=== PATIENT | male | born 1965 | race Caucasian/White ===

== ENCOUNTER 2018-04-19 08:55 | Emergency (ER) | payer OTHER, MEDICAID ==
[~2018-04-19] VITALS: Ht 167.6 cm; Wt 75.3 kg
[2018-04-19 09:14] VITALS: Ht 167.6 cm; Wt 75.3 kg
[2018-04-19 12:14] VITALS: BP 147/79
== END 2018-04-19 12:15 | disposition home or self-care (01) ==
LOC: ED 08:55
DX: E11.40 Type 2 diabetes mellitus with diabetic neuropathy, unspecified (principal); I10 Essential (primary) hypertension; E78.00 Pure hypercholesterolemia, unspecified
CPT/HCPCS: 82962; J1885

== ENCOUNTER 2018-06-17 15:36 | Emergency (ER) | payer OTHER, MEDICAID ==
[~2018-06-17] VITALS: Ht 170.2 cm; Wt 77.1 kg
[2018-06-17 15:48] VITALS: BP 162/104; Ht 170.2 cm; Wt 77.1 kg
== END 2018-06-17 17:39 | disposition home or self-care (01) ==
LOC: ED 15:36
DX: L02.11 Cutaneous abscess of neck (principal); I10 Essential (primary) hypertension; E78.00 Pure hypercholesterolemia, unspecified; E11.40 Type 2 diabetes mellitus with diabetic neuropathy, unspecified; Z76.0 Encounter for issue of repeat prescription

== ENCOUNTER 2018-07-10 17:56 | Emergency (ER) | payer OTHER, MEDICAID ==
[~2018-07-10] VITALS: Ht 170.2 cm; Wt 79.8 kg
[2018-07-10 18:06] VITALS: Ht 170.2 cm; Wt 79.8 kg
[2018-07-10 19:53] VITALS: BP 153/112
== END 2018-07-10 19:53 | disposition left against medical advice (07) ==
LOC: ED 17:56
DX: L03.811 Cellulitis of head [any part, except face] (principal); I10 Essential (primary) hypertension; E11.9 Type 2 diabetes mellitus without complications; E78.00 Pure hypercholesterolemia, unspecified; Z88.0 Allergy status to penicillin